=== PATIENT | male | born 1980 | race Caucasian/White ===

== ENCOUNTER 2018-12-30 18:36 | Emergency (ER) | payer OTHER ==
[~2018-12-30] VITALS: Ht 165.1 cm; Wt 93.2 kg
[~2018-12-30 18:36] MED LIST: FLUT11IN INH; KLON1TAB PO
[2018-12-30] MEDS ORDERED: VENTAER (18:43)
[2018-12-30] MEDS ORDERED: GABA-845 PO (19:20)
[2018-12-30] MEDS ORDERED: LIDVISCBTL PO (19:54)
[2018-12-30 19:58] VITALS: BP 143/101
[2018-12-30] MEDS ORDERED: LIDOCAINE VISCOUS 2% SOLN 15ML UDC TOP ONE (20:00)
== END 2018-12-30 20:08 | disposition home or self-care (01) ==
LOC: M ED 18:36
DX: K08.89 Other specified disorders of teeth and supporting structures (principal); Z88.8 Allergy status to other drugs, medicaments and biological substances

== ENCOUNTER → 2019-07-01 | Outpatient (REF) | payer OTHER ==
[~2019-07-01] MED LIST changes: +GABA-845 PO; +LIDVISCBTL PO; +VENTAER
[2019-07-04 14:07] LABS: HEPATITIS C QUANTITATION HCV Not Detected IU/mL (.)
== END ==
LOC: M SFHCCLAY 11:46
PROVIDERS: ATTEND Family Medicine
DX: R76.8 Other specified abnormal immunological findings in serum (principal)

== ENCOUNTER 2022-02-04 16:47 | Emergency (ER) | payer OTHER ==
[~2022-02-04] VITALS: Ht 167.6 cm; Wt 82.3 kg
[~2022-02-04 16:47] MED LIST changes: +GABA-283 PO; -GABA-845 PO
[2022-02-04 19:07] LABS: BASO # 0.1 10^3/uL (0.0-0.2); BASO % 0.4 % (0.0-1.0); EOS % 0.1 % (0.0-3.0); HEMOGLOBIN 10.5 g/dl (13.5-17.5); LYMPH # 2.1 10^3/uL (1.5-5.0); MEAN CORPUSCULAR HEMOGLOBIN 28.5 pg (27.0-33.0); MEAN CORPUSCULAR HGB CONC 32.8 g/dl (32.0-36.5); MEAN CORPUSCULAR VOLUME 86.7 fl (80.0-96.0); MONO # 1.5 10^3/uL (0.0-0.8); MONO % 7.5 % (2.0-8.0); NEUTROPHILS # 15.5 10^3/uL (1.5-8.5); NEUTROPHILS % 80.1 % (36.0-66.0); PLATELET COUNT, AUTOMATED 603 10^3/uL (150-450); RED BLOOD COUNT 3.69 10^6/uL (4.30-6.10); WHITE BLOOD COUNT 19.4 10^3/uL (4.0-10.0)
[2022-02-04] MEDS ORDERED: MORPHINE 4 MG/ML 1ML VIAL/SYRINGE IV ONE ×2 (19:10→21:00)
[2022-02-04 19:23] LABS: ALT/SGPT 121 U/L (12-78); BILIRUBIN,DIRECT 0.2 MG/DL (0.0-0.2); BILIRUBIN,TOTAL 0.4 MG/DL (0.2-1.0); BLOOD UREA NITROGEN 15 MG/DL (7-18); CALCIUM LEVEL 8.8 MG/DL (8.5-10.1); CARBON DIOXIDE LEVEL 29 MEQ/L (21-32); CHLORIDE LEVEL 97 MEQ/L (98-107); CREATININE FOR GFR 1.02 MG/DL (0.70-1.30); GLOMERULAR FILTRATION RATE > 60.0 (>60); GLUCOSE, FASTING 127 MG/DL (70-100); SODIUM LEVEL 132 MEQ/L (136-145); THYROID STIMULATING HORMONE 0.639 uIU/ML (0.358-3.740); TOTAL PROTEIN 8.2 GM/DL (6.4-8.2)
[2022-02-04] MEDS ORDERED: ISOVUE-370 76% 100ML VIAL As Ordered ONE (20:05)
[2022-02-04] MEDS ORDERED: IPRATROPIUM 0.5MG/ALBUTEROL 2.5MG INH SOL UD 3ML (DUONEB) NEB ONE (21:10)
[2022-02-04 22:44] LABS: ERYTHROCYTE SEDIMENTATION RATE 82 mm/hr (0-15)
[2022-02-04] MEDS: HYDROMORPHONE HCL 0.5 MG/ 0.5 ML SYRINGE (J1170 PER 1) IV PRN (22:50)
[2022-02-04] MEDS ORDERED: NS 1,000 ML IV ONE (23:40)
[2022-02-05] MEDS ORDERED: VANCOMYCIN HCL 1,000 MG, VIAL MATE ADAPTER 1 EACH in NS 250 ML IV ONE ×3
[2022-02-05] MEDS ORDERED: VANCOMYCIN HCL 1,750 MG in NS 250 ML IV ONE (00:10)
[2022-02-05] MEDS: HYDROMORPHONE HCL 0.5 MG/ 0.5 ML SYRINGE (J1170 PER 1) IV PRN ×5 (00:55→06:07)
[2022-02-05] MEDS ORDERED: VANCOMYCIN HCL 750 MG, VIAL MATE ADAPTER 1 EACH in NS 250 ML IV ONE (01:00)
[2022-02-05] MEDS ORDERED: fentaNYL 100 MCG/2 ML INJECTION IV ONE (06:45)
[2022-02-05 06:46] VITALS: BP 140/76
== END 2022-02-05 06:53 | disposition short-term general hospital (02) ==
LOC: M ED 16:47
DX: M46.24 Osteomyelitis of vertebra, thoracic region (principal); G90.09 Other idiopathic peripheral autonomic neuropathy; M89.8X8 Other specified disorders of bone, other site; M62.81 Muscle weakness (generalized); R00.0 Tachycardia, unspecified; F17.200 Nicotine dependence, unspecified, uncomplicated; C34.90 Malignant neoplasm of unspecified part of unspecified bronchus or lung; J45.909 Unspecified asthma, uncomplicated; Z88.5 Allergy status to narcotic agent; Z79.899 Other long term (current) drug therapy
CPT/HCPCS: 71046; 71275; 72125; 72128; 72131; 74177; 80048; 80076; 81001; 83605; 84443; 85025; 85652; 86140; 87040; 87077; 87086; 87186; 87486; 87581; 87633; 87798; 93005; 94640; 99284; J1170; J2270; J3010; J3370; Q9967

== ENCOUNTER 2024-03-12 02:08 | Emergency (ER) | payer MEDICAID, OTHER ==
[~2024-03-12] VITALS: Ht 165.1 cm; Wt 87.3 kg
[~2024-03-12 02:08] MED LIST changes: -GABA-283 PO; +GABA-284 PO; -KLON1TAB PO; +KLON1TAB13 PO; +OXYC10TA3
[2024-03-12] MEDS: ONDANSETRON 4MG 2ML VIAL IV ONE (07:49)
[2024-03-12] MEDS: LIDOCAINE 5% (LIDODERM) PATCH TD ONE (07:49)
[2024-03-12] MEDS: ACETAMINOPHEN 500 MG TAB PO ONE (07:49)
[2024-03-12] MEDS: KETOROLAC 30 MG/ML 1ML VIAL IV ONE (07:50)
[2024-03-12] MEDS: MORPHINE 4 MG/ML 1ML VIAL IV PRN (07:50)
[2024-03-12 08:00] VITALS: BP 147/105; TEMP 96.9; O2SAT 94
== END 2024-03-12 08:21 | disposition left against medical advice (07) ==
LOC: M ED 02:08
DX: M54.6 Pain in thoracic spine (principal); R53.1 Weakness; F17.200 Nicotine dependence, unspecified, uncomplicated; Z88.5 Allergy status to narcotic agent; Z79.52 Long term (current) use of systemic steroids; Z79.899 Other long term (current) drug therapy; Z53.9 Procedure and treatment not carried out, unspecified reason
CPT/HCPCS: 96374; 96375; 99284; J1885; J2405